=== PATIENT | male | born 1955 | race American Indian/Alaskan Native ===

== ENCOUNTER 2018-09-11 10:12 | Outpatient (CLI) | payer BC ==
[2018-09-11] MEDS ORDERED: XYLOCAINE TOPICAL 4% TP ONE (10:44)
[2018-09-12] MEDS ORDERED: AD OINTMENT TP SCH (10:00)
== END 2018-09-11 10:13 | disposition home or self-care (01) ==
LOC: WOUND 10:12
PROVIDERS: ATTEND Surgery
DX: E11.622 Type 2 diabetes mellitus with other skin ulcer (principal); L97.212 Non-pressure chronic ulcer of right calf with fat layer exposed; G47.30 Sleep apnea, unspecified; K21.9 Gastro-esophageal reflux disease without esophagitis; E78.5 Hyperlipidemia, unspecified; G47.00 Insomnia, unspecified; E11.40 Type 2 diabetes mellitus with diabetic neuropathy, unspecified; J44.9 Chronic obstructive pulmonary disease, unspecified; Z98.42 Cataract extraction status, left eye; Z98.41 Cataract extraction status, right eye
CPT/HCPCS: 11042; G0463; 99205

== ENCOUNTER 2018-09-17 10:34 | Outpatient (CLI) | payer BC ==
[2018-09-17] MEDS ORDERED: XYLOCAINE TOPICAL 4% TP ONE (10:39)
== END 2018-09-17 10:35 | disposition home or self-care (01) ==
LOC: WOUND 10:34
PROVIDERS: ATTEND Surgery
DX: E11.622 Type 2 diabetes mellitus with other skin ulcer (principal); L97.212 Non-pressure chronic ulcer of right calf with fat layer exposed; G47.30 Sleep apnea, unspecified; K21.9 Gastro-esophageal reflux disease without esophagitis; E78.5 Hyperlipidemia, unspecified; G47.00 Insomnia, unspecified; E11.40 Type 2 diabetes mellitus with diabetic neuropathy, unspecified; J44.9 Chronic obstructive pulmonary disease, unspecified; Z98.42 Cataract extraction status, left eye; Z98.41 Cataract extraction status, right eye

== ENCOUNTER 2018-10-01 10:57 | Outpatient (CLI) | payer BC, MEDICARE ==
[2018-10-01] MEDS ORDERED: SILVER NITRATE TP ONE (11:30)
[2018-10-01] MEDS ORDERED: XYLOCAINE TOPICAL 4% TP ONE (12:06)
== END 2018-10-01 10:58 | disposition home or self-care (01) ==
LOC: WOUND 10:57
PROVIDERS: ATTEND Surgery
DX: E11.621 Type 2 diabetes mellitus with foot ulcer (principal); L97.212 Non-pressure chronic ulcer of right calf with fat layer exposed; K21.9 Gastro-esophageal reflux disease without esophagitis; E11.40 Type 2 diabetes mellitus with diabetic neuropathy, unspecified; E11.36 Type 2 diabetes mellitus with diabetic cataract; J44.9 Chronic obstructive pulmonary disease, unspecified; E78.5 Hyperlipidemia, unspecified; G47.30 Sleep apnea, unspecified; G47.00 Insomnia, unspecified; R33.9 Retention of urine, unspecified

== ENCOUNTER 2018-10-22 10:38 | Outpatient (CLI) | payer MEDICARE | END 2018-10-22 10:39 | disposition home or self-care (01) | LOC: WOUND 10:38 | PROVIDERS: ATTEND Surgery | DX: E11.621 Type 2 diabetes mellitus with foot ulcer (principal); L97.218 Non-pressure chronic ulcer of right calf with other specified severity; K21.9 Gastro-esophageal reflux disease without esophagitis; E11.40 Type 2 diabetes mellitus with diabetic neuropathy, unspecified; E11.36 Type 2 diabetes mellitus with diabetic cataract; J44.9 Chronic obstructive pulmonary disease, unspecified; E78.5 Hyperlipidemia, unspecified; G47.30 Sleep apnea, unspecified; G47.00 Insomnia, unspecified; R33.9 Retention of urine, unspecified | CPT/HCPCS: 99212; G0463 ==